=== PATIENT | male | born 1950 | race Caucasian/White ===

== ENCOUNTER 2025-04-04 00:47 | Inpatient (IN) | payer BC ==
[~2025-04-04] VITALS: Ht 172.7 cm; Wt 131.5 kg
[2025-04-04] VITALS (10 sets, daily range): BP systolic 93–124; BP diastolic 38–53; TEMP 98–99.2; O2SAT 93–99
[2025-04-04] MEDS ORDERED: ONDANSETRON ODT 4 MG TAB.RAPDIS SL ONE (01:30)
[2025-04-04] MEDS ORDERED: MECLIZINE HCL 25 MG TABLET PO ONE (01:30)
[2025-04-04] MEDS ORDERED: IV NORMAL SALINE 500 ML IV ONE (01:30)
[2025-04-04] MEDS: IV NS 1000 ML 1,000 ML IV ONE (01:31)
[2025-04-04] MEDS ORDERED: FLUT16SP16 BNOSTRILS (01:40)
[2025-04-04] MEDS ORDERED: PANT40TA49 PO (01:40)
[2025-04-04] MEDS ORDERED: MELA10TA PO (01:40)
[2025-04-04] MEDS ORDERED: ALBU2.5V38 IH (01:40)
[2025-04-04] MEDS ORDERED: VITAMIN PO (01:40)
[2025-04-04] MEDS ORDERED: ORGOVYX PO (01:40)
[2025-04-04] MEDS ORDERED: BENZ1LOZ58 PO (01:40)
[2025-04-04] MEDS ORDERED: ONDA4TAB5 PO (01:40)
[2025-04-04] MEDS ORDERED: POLY250017 PO (01:40)
[2025-04-04] MEDS ORDERED: PRED2.5T PO (01:40)
[2025-04-04] MEDS ORDERED: SIME80TA15 PO (01:40)
[2025-04-04] MEDS ORDERED: ZINC56.713 TP (01:40)
[2025-04-04] MEDS ORDERED: [UNRECOGNIZED DRUG - CODE] PO (01:40)
[2025-04-04] MEDS ORDERED: ACET650T10 PO (01:40)
[2025-04-04] MEDS ORDERED: BENZ200C53 PO (01:40)
[2025-04-04] MEDS ORDERED: METH-806 PO (01:40)
[2025-04-04] MEDS ORDERED: FAMO20TA8 PO (01:40)
[2025-04-04] MEDS ORDERED: DICL100G61 TP (01:40)
[2025-04-04] MEDS ORDERED: ABIR250T PO (01:40)
[2025-04-04] MEDS ORDERED: CALCIUM PO (01:40)
[2025-04-04] MEDS ORDERED: ASPI81TA31 PO (01:40)
[2025-04-04] MEDS ORDERED: OLAP150T PO (01:40)
[2025-04-04] MEDS ORDERED: ASCO500C18 PO (01:40)
[2025-04-04] MEDS ORDERED: MIDO10TA3 PO (01:40)
[2025-04-04] MEDS ORDERED: METO25TA6 PO (01:40)
[2025-04-04] MEDS ORDERED: MULT-365 PO (01:40)
[2025-04-04] MEDS ORDERED: DIPH25TA27 PO (01:40)
[2025-04-04] MEDS ORDERED: ONDANSETRON 4 MG/2 ML VIAL ONE (01:41)
[2025-04-04] MEDS ORDERED: FAMOTIDINE. 20 MG/2 ML VIAL IV ONE (01:41)
[2025-04-04 01:42] LABS: PLATELET COUNT (AUTO) 396 K/uL (152-348); RED BLOOD CELL COUNT(AUTO) 2.84 MIL/uL (4.06-5.63); RED CELL DISTRIBUTION WIDTH 20.6 % (12.1-16.2); WHITE BLOOD COUNT (AUTO) 8.1 K/uL (3.6-10.2)
[2025-04-04] MEDS: ONDANSETRON 4 MG/2 ML VIAL IV ONE (01:44)
[2025-04-04] MEDS: FAMOTIDINE. 20 MG/2 ML VIAL IV ONE (01:44)
[2025-04-04 01:48] LABS: CREATININE 1.5 mg/dL (0.6-1.3); SODIUM SERUM 135 mmol/L (136-145); UREA NITROGEN, BLOOD 21 mg/dL (7-18)
[2025-04-04 01:55] LABS: ASPARTATE AMINOTRANSFERASE 12 U/L (15-37); TOTAL PROTEIN, SERUM 5.8 g/dL (6.4-8.2)
[2025-04-04] MEDS ORDERED: PROCHLORPERAZINE EDISYLATE 10 MG/2 ML VIAL ONE (02:46)
[2025-04-04] MEDS ORDERED: MAGNESIUM SULFATE/D5W 100 ML ONE (02:46)
[2025-04-04] MEDS ORDERED: MAGNESIUM SULFATE 1 GM/2 ML VIAL ONE (02:47)
[2025-04-04] MEDS: PROCHLORPERAZINE EDISYLATE 10 MG/2 ML VIAL IV ONE (02:52)
[2025-04-04] MEDS: MAGNESIUM SULFATE 2 GM in IV DEXTROSE 5% 100 ML IV ONE (02:52)
[2025-04-04] MEDS: POTASSIUM CHLORIDE 20 MEQ TAB.PRT.SR PO ONE ×2 (02:54→11:29)
[2025-04-04 03:21] LABS: *BILIRUBIN,URIN NEGATIVE (NEGATIVE); *BLOOD, URINE 2+ (NEGATIVE); *COLOR,URINE YELLOW (YELLOW); *KETONES,URINE NEGATIVE (NEGATIVE); *PROTEIN,URINE 3+ (NEGATIVE); *UROBILINOGEN,URINE 0.2 E.U./dl (NORMAL); LEUKOCYTE ESTERASE ,URINE 3+ (NEGATIVE); NITRITE, URINE NEGATIVE (NEGATIVE); UGLUCOSE NEGATIVE (NEGATIVE)
[2025-04-04 04:08] LABS: SQUAMOUS EPITHELIAL CELL,UR MODERATE /HPF (NONE SEEN)
[2025-04-04 04:27] LABS: *CLARITY,URINE CLOUDY (CLEAR)
[2025-04-04] MEDS ORDERED: ACETAMINOPHEN 325 MG TABLET PO PRN (06:00)
[2025-04-04] MEDS ORDERED: REMEDY ESSENTIAL ZINC PASTE 113 GM TP PRN (06:00)
[2025-04-04] MEDS ORDERED: PIPERACILLIN SODIUM/TAZOBACTAM 3.375 G in IV DEXTROSE 5% 50 ML IV SCH (06:00)
[2025-04-04] MEDS ORDERED: BUDE0.5A4 NEB (09:31)
[2025-04-04] MEDS: IV LACTATED RINGERS SOLUTION 1,000 ML IV PRN (09:32)
[2025-04-04] MEDS ORDERED: potassium citrate PO (09:43)
[2025-04-04] MEDS: PIPERACILLIN SODIUM/TAZOBACTAM 3.375 G in IV DEXTROSE 5% 100 ML IV SCH (09:47)
[2025-04-04] MEDS ORDERED: [UNRECOGNIZED DRUG - OTHER] TOP (09:47)
[2025-04-04] MEDS: PANTOPRAZOLE SODIUM 40 MG VIAL IV SCH (09:48)
[2025-04-04 10:36] LABS: PLATELET COUNT (AUTO) 330 K/uL (152-348); RED BLOOD CELL COUNT(AUTO) 2.56 MIL/uL (4.06-5.63); RED CELL DISTRIBUTION WIDTH 21.2 % (12.1-16.2); WHITE BLOOD COUNT (AUTO) 9.4 K/uL (3.6-10.2)
[2025-04-04 10:41] LABS: CREATININE 1.3 mg/dL (0.6-1.3); SODIUM SERUM 139 mmol/L (136-145); UREA NITROGEN, BLOOD 19 mg/dL (7-18)
[2025-04-04] MEDS: ONDANSETRON 4 MG/2 ML VIAL IV PRN (12:29)
[2025-04-04] MEDS ORDERED: METHOCARBAMOL 500 MG TABLET PO PRN (13:00)
[2025-04-04] MEDS ORDERED: BUDESONIDE 0.5 MG/2 ML NEBU NEB SCH (13:00)
[2025-04-04] MEDS ORDERED: IV NS 1000 ML 1,000 ML IV PRN (19:30)
[2025-04-04] MEDS ORDERED: PANTOPRAZOLE SODIUM 40 MG TABLET.DR PO SCH (21:00)
[2025-04-04] MEDS: MELATONIN 3 MG TABLET PO SCH (21:01)
[2025-04-04] MEDS: METOPROLOL TARTRATE 25 MG TABLET PO SCH (21:02)
[2025-04-04] MEDS: FLUTICASONE PROP NASAL SPRAY 16 GM BOTTLE NS SCH (21:04)
[2025-04-04] MEDS: BUDESONIDE 0.5 MG/2 ML NEBU NEB SCH (21:21)
[2025-04-05] VITALS (10 sets, daily range): BP systolic 104–126; BP diastolic 43–62; TEMP 97.5–98.4; O2SAT 95–99
[2025-04-05 07:32] LABS: PLATELET COUNT (AUTO) 311 K/uL (152-348); RED CELL DISTRIBUTION WIDTH 20.7 % (12.1-16.2); WHITE BLOOD COUNT (AUTO) 7.4 K/uL (3.6-10.2)
[2025-04-05 07:33] LABS: RED BLOOD CELL COUNT(AUTO) 2.32 MIL/uL (4.06-5.63)
[2025-04-05 07:38] LABS: ASPARTATE AMINOTRANSFERASE 10 U/L (15-37); CREATININE 1.2 mg/dL (0.6-1.3); SODIUM SERUM 139 mmol/L (136-145); TOTAL PROTEIN, SERUM 4.9 g/dL (6.4-8.2); UREA NITROGEN, BLOOD 15 mg/dL (7-18)
[2025-04-05] MEDS: MULTIVITAMINS,THERAPEUTIC TABLET PO SCH (08:45)
[2025-04-05] MEDS: ASCORBIC ACID 500 MG TABLET PO SCH (08:45)
[2025-04-05] MEDS: FAMOTIDINE 20 MG TABLET PO SCH (08:45)
[2025-04-05] MEDS: ASPIRIN 81 MG TAB.CHEW PO SCH (08:45)
[2025-04-06] VITALS (8 sets, daily range): BP systolic 108–132; BP diastolic 44–65; TEMP 97.5–97.9; O2SAT 95–99
[2025-04-06] MEDS: PANTOPRAZOLE SODIUM 40 MG TABLET.DR PO SCH (06:16)
[2025-04-06] MEDS: NEOMY/BACITRAC/POLYMI OINT 28.35 GM TUBE TOP SCH (12:10)
[2025-04-07] VITALS (9 sets, daily range): BP systolic 114–134; BP diastolic 48–55; TEMP 97.5–97.8; O2SAT 96–100
[2025-04-07 07:32] LABS: PLATELET COUNT (AUTO) 368 K/uL (152-348); RED CELL DISTRIBUTION WIDTH 21.2 % (12.1-16.2); WHITE BLOOD COUNT (AUTO) 7.3 K/uL (3.6-10.2)
[2025-04-07 07:52] LABS: RED BLOOD CELL COUNT(AUTO) 2.48 MIL/uL (4.06-5.63)
[2025-04-07 08:07] LABS: CREATININE 1.2 mg/dL (0.6-1.3); SODIUM SERUM 141 mmol/L (136-145); UREA NITROGEN, BLOOD 12 mg/dL (7-18)
[2025-04-07] MEDS ORDERED: MEROPENEM 1 G in IV NORMAL SALINE 100 ML IV SCH (11:45)
[2025-04-07] MEDS: MEROPENEM 1 G in IV NORMAL SALINE 100 ML IV SCH (14:41)
[2025-04-08] VITALS (8 sets, daily range): BP systolic 114–134; BP diastolic 41–82; TEMP 97.2–98.3; O2SAT 97–100
[2025-04-09] VITALS (8 sets, daily range): BP systolic 141–149; BP diastolic 62–67; TEMP 97.5–99.6; O2SAT 95–100
[2025-04-09 06:53] LABS: PLATELET COUNT (AUTO) 398 K/uL (152-348); RED BLOOD CELL COUNT(AUTO) 2.77 MIL/uL (4.06-5.63); RED CELL DISTRIBUTION WIDTH 21.6 % (12.1-16.2); WHITE BLOOD COUNT (AUTO) 12.6 K/uL (3.6-10.2)
[2025-04-09 07:10] LABS: ASPARTATE AMINOTRANSFERASE 8 U/L (15-37); CREATININE 1.1 mg/dL (0.6-1.3); SODIUM SERUM 145 mmol/L (136-145); TOTAL PROTEIN, SERUM 5.2 g/dL (6.4-8.2); UREA NITROGEN, BLOOD 12 mg/dL (7-18)
[2025-04-09 07:44] LABS: EOSINOPHILS % (MANUAL) 2 % (0-8); LYMPHOCYTES % (MANUAL) 5 % (20-40); MONOCYTES % (MANUAL) 8 % (2-10); NEUTROPHILS % (MANUAL) 85 % (42-75); PLATELET ESTIMATE INCREASED
[2025-04-09] MEDS: MAGNESIUM HYDROXIDE 30 ML LIQUID UDC PO PRN (15:11)
[2025-04-10 04:00] VITALS: BP 131/59; TEMP 98.7; O2SAT 95
[2025-04-10 07:30] VITALS: O2SAT 97
[2025-04-10 07:40] VITALS: O2SAT 99
[2025-04-10] MEDS: MAGNESIUM CITRATE 296 ML BOTTLE PO ONE (10:30)
[2025-04-10] MEDS ORDERED: MERO1VIA23 IV (11:05)
[2025-04-10 11:33] VITALS: BP 130/61; TEMP 97.7; O2SAT 97
[2025-04-10] MEDS: FLEET ENEMA 133 ML BOTTLE RC ONE (13:59)
[2025-04-10 15:46] VITALS: BP 134/64; TEMP 97.8; O2SAT 98
== END 2025-04-10 16:25 | DRG 698 ==
LOC: ER 00:51 → TELE3 08:42 → MEDSURG3 04-07 12:35
PROVIDERS: ADMIT Nurse Practitioner Acute Care; ATTEND Nurse Practitioner Acute Care
PROC: 05HC33Z Insertion of Infusion Device into Left Basilic Vein, Percutaneous Approach (ICD-10-PCS; principal; 2025-04-07)
PROC: 05HD33Z Insertion of Infusion Device into Right Cephalic Vein, Percutaneous Approach (ICD-10-PCS; 2025-04-08)
DX: T83.511A Infection and inflammatory reaction due to indwelling urethral catheter, initial encounter (principal); A41.51 Sepsis due to Escherichia coli [E. coli]; N17.0 Acute kidney failure with tubular necrosis; R65.20 Severe sepsis without septic shock; E44.0 Moderate protein-calorie malnutrition; D68.59 Other primary thrombophilia; E88.09 Other disorders of plasma-protein metabolism, not elsewhere classified; N13.6 Pyonephrosis; Z93.0 Tracheostomy status; E66.01 Morbid (severe) obesity due to excess calories; I71.20 Thoracic aortic aneurysm, without rupture, unspecified; I12.9 Hypertensive chronic kidney disease with stage 1 through stage 4 chronic kidney disease, or unspecified chronic kidney disease; N18.9 Chronic kidney disease, unspecified; M48.54XA Collapsed vertebra, not elsewhere classified, thoracic region, initial encounter for fracture; Z68.41 Body mass index [BMI] 40.0-44.9, adult; Z16.12 Extended spectrum beta lactamase (ESBL) resistance; Y73.8 Miscellaneous gastroenterology and urology devices associated with adverse incidents, not elsewhere classified; Y92.099 Unspecified place in other non-institutional residence as the place of occurrence of the external cause; N28.1 Cyst of kidney, acquired; Z71.3 Dietary counseling and surveillance; E87.6 Hypokalemia; E83.42 Hypomagnesemia; K80.20 Calculus of gallbladder without cholecystitis without obstruction; K42.9 Umbilical hernia without obstruction or gangrene; I25.10 Atherosclerotic heart disease of native coronary artery without angina pectoris; I25.2 Old myocardial infarction; Z87.442 Personal history of urinary calculi; Z85.46 Personal history of malignant neoplasm of prostate; Z79.82 Long term (current) use of aspirin; Z79.899 Other long term (current) drug therapy; R53.1 Weakness; R73.9 Hyperglycemia, unspecified
CPT/HCPCS: 36415; 70030-TC; 76705; 76770; 83690; 83735; 84100; 84443; 84484; 85025; 85610; 87077; 87086; 93307; 94640; 94760; A4663; A6213; G0378; J0780; J1308; J2185; J2405; J2470; J2543; J3475; J3535; J7040; J7120; J7512